=== PATIENT | female | born 1990 | race Caucasian/White ===

== ENCOUNTER 2018-03-03 00:46 | Emergency (ER) | payer SELFPAY ==
[~2018-03-03] VITALS: Ht 175.3 cm; Wt 127.0 kg
[~2018-03-03 00:46] MED LIST: ACHYD1T PO; CEPH500C PO; CYCL10TA9 PO; DCS100C PO; DOXY100C2 PO; FAMO20TA5 PO; HYDR1TAB PO; IBP800T PO; LEVO500T69 PO; METR500T PO; NAPR-243 PO; NEOM10DR6 EACH EAR; NITR-65 PO; NITR100C PO; ONDAN4ODT PO; PHEN200T27 PO; PRD20T PO; PREN1TAB39 PO; RNT150T PO
--- OUTSIDE RECORDS SUMMARY | 2018-03-03 00:54 | XMS REPORT ---
Author Author SAUL KING [facility] IN [facility] Address [address] [place] [address] Care Team Providers Care Rubber Process Hand Name Role Phone SAUL KING Unavailable PROBLEMS Type Condition ICD9-CM Code EZO60-BG Code Onset Dates Condition Status SNOMED Code Problem Other chronic pain G89.29 Active 35447294 Problem Obesity (BMI 30-39.9) E66.9 Active 252314626 Problem Elevated hemoglobin A1c measurement R73.09 Active 540847136 Problem Fibrocystic breast disease (FCBD) in female N60.19 Active 15720396 Problem Elevated fasting glucose R73.01 Active 582324815 ALLERGIES No Known Allergies ENCOUNTERS Encounter Location Date Diagnosis [facility] IN [facility] [address] [address] Apr, Cough R05 and Acute nasopharyngitis J00 [facility] [address] [id number] Feb, Bronchitis J40 and BMI 40.0-44.9, adult Z68.41 [facility] [address] [address] Nov, [facility] [address] [address] Jul, Lumbar sprain, initial encounter S33.5XXA [address] [address] Apr, Impaired fasting glucose R73.01 [place] [address] [address] Mar, Encounter for routine adult health examination with abnormal findings Z00.01 ; Obesity (BMI 30-39.9) E66.9 and Pain in right knee M25.561 [facility] [id number] [place] [address] 20 Mar, 2016 Encounter for routine adult health examination with abnormal findings Z00.01 ; Obesity (BMI 30-39.9) E66.9 ; Fibrocystic breast disease (FCBD) in female N60.19 ; Pain in right knee M25.561 ; Pain in left knee M25.562 ; Other chronic pain G89.29 ; Pain in right ankle and joints of right foot M25.571 and Pain in left ankle and joints of left foot M25.572 [place] [address] [address] 07 Feb, 2016 Fibrocystic breast changes, unspecified laterality N60.19 and Elevated blood pressure reading R03.0 [place] [address] [address] 11 Apr, 2015 Abscess of female genitalia N73.9 [place] [address] [address] 18 Feb, 2015 Vaginal discharge N89.8 ; Sebaceous cyst L72.3 ; Bartholin cyst N75.0 and Screening for malignant neoplasm of cervix Z12.4 [facility] [id number] [place] [id number] Sep, Dental examination V72.2 [place] [id number] [place] [address] 14 Jul, 2014 [place] [id number] [place] [address]- [address] Jul, [place] [address] [address] Jul, [facility] [id number] [place] [address] Jul, [facility] [id number] [place] [address]- [address] Jul, [facility] [address] [id number] [place] [address] Jul, [facility] [address] [id number] [place] [address] 37[address] Jul, [facility] [address] [id number] [place] [address] Jul, [facility] [address] [id number] [place] [address] 8854 Sep, [facility] [address] [id number] [place] [address] 8[address] Jun, [facility] [address] [id number] [place] [address] 0782 Jun, [facility] [address] [id number] [place] [address]- 5256 Jun, [facility] [address] [id number] [place] [address] May, [facility] [address] [id number] [place] [address] 8[address] May, [facility] [address] [id number] [place] [address]- 6826 Apr, [facility] [address] [id number] [place] [address] 356[address] Apr, [facility] [address] [id number] [place] [address]- 0106 Apr, [facility] [place] [facility] [address] [id number] [place] [address]- 1531 Apr, [facility] [place] [facility] [address] [id number] [place] [address]- 2844 Apr, [facility] [place] [facility] [address] [id number] [place] [address]- 1586 Mar, [facility] [address] [id number], [place] [address] Mar, [facility] [place] [facility] [address] [id number] [place] [address]- 2876 Mar, [facility] [place] [facility] [address] [id number] [place] [address]- 7516 Mar, [facility] [place] [facility] [address] [id number] [place] [address]- 0636 Mar, [facility] [place] [facility] [address] [id number] [place] [address]- 0349 Mar, [facility] [place] [facility] [address] [id number] [place] [address]- 5737 Mar, [facility] [place] [facility] [address] [id number] [place] [address]- 0082 Mar, [facility] [place] [facility] [address] [id number] [place] [address]- 6014 Mar, [facility] [place] [facility] [address] [id number] [place] [address]- 7993 Mar, [facility] [place] [facility] [address] [id number] [place] [address]- 8603 Mar, [facility] [place] [facility] [address] [id number] [place] [address]- 0769 Feb, [facility] [place] [facility] [address] [id number], [place] [address] 89[address] Feb, [facility] [place] [facility] [address] [id number], [place] [address]- 6207 Feb, [facility] [place] [facility] [address] [id number] [place] [address]- 8552 Feb, [facility] [place] [facility] [address] [id number] [place] [address]- 5156 Feb, [facility] [place] [facility] [address] [id number] [place] [address]- 1011 Feb, [facility] [place] [facility] [address] [id number] [place] [address]- 6654 Feb, [facility] [place] [facility] [address] [id number] [place] [address]- 0936 Feb, [facility] [place] [facility] [address] [id number] [place] [address]- 5126 Feb, [facility] [place] [facility] [address] [id number] [place] [address]- 9216 Jan, [facility] [place] [facility] [address] [id number] [place] [address]- 7867 Jan, [facility] [place] [facility] [address] [id number] [place] [address]- 9555 Jan, [facility] [place] [facility] [address] [id number] [place] [address]- 3729 Dec, [facility] [place] [facility] [address] [id number] [place] [address]- 2617 Dec, [facility] [place] [facility] [address] [id number] [place] [address]- 4564 Dec, [facility] [place] [facility] [address] [id number] [place] [address]- 9251 Dec, [facility] [place] [facility] [address] [id number] [place] [address]- 7780 Nov, [facility] [place] [facility] [address] [id number] [place] [address]- 2111 Nov, [facility] [place] [facility] [address] [id number] [place] [address]- 6630 Nov, [facility] [place] [facility] [address] [id number] [place] [address]- 0991 Oct, [facility] [place] [facility] [address] [id number] [place] [address]- 3226 Sep, [facility] [place] [facility] [address] [id number] [place] [address]- 2969 Sep, [facility] [place] [facility] [address] [id number] [place] [address]- 1267 26 Sep, 2011 [facility] [place] [facility] [address] [id number] [place] [address]- 5172 25 Sep, 2011 [facility] [place] [facility] [address] [id number] [place] [address]- 2013 21 Sep, 2011 [facility] [place] [facility] [address] [id number] [place] [address]- 1714 19 Sep, 2011 [facility] [place] [facility] [address] [id number] [place] [address]- 4946 15 Sep, 2011 [facility] [place] [facility] [address] [id number] [place] [address]- 7074 13 Sep, 2011 [facility] [place] [facility] [address] [id number] [place] [address]- 7930 Sep, [facility] [place] [facility] [address] [id number] [place] [address]- 9482 Sep, [facility] [place] [facility] [address] [id number] [place] [address]- 0487 August, [facility] [place] [facility] [address] [id number] [place] [address]- 6352 August, [facility] [place] [facility] [address] [id number] [place] [address]- 8943 August, [facility] [place] [facility] [address] [id number] [place] [address]- 0165 Apr, [facility] [place] [facility] [address] [id number] [place] [address]- 4562 Apr, [facility] [place] [facility] [address] [id number] [place] [address]- 3893 24 Mar, 2010 [facility] [place] [facility] [address] [id number] [place] [address]- 7652 Mar, [facility] [place] [facility] [address] [id number] [address]- 7135 Mar, [facility] [address] [id number], [place] [address]- 3365 Mar, [facility] [address] [id number], [place] [address]- 5546 Mar, [facility] [address] [id number], [place] [address]- 6290 Mar, [facility] [address], [place] [address]- 12[address] Feb, [facility] [address], [place] [address]- [address]186 Feb, [facility] [address], [place] [address]- 7527 Apr, IMMUNIZATIONS No Known Immunizations SOCIAL HISTORY Never Assessed REASON FOR VISIT CONGESTION Pt c/o body aches, cough and congestion for 3 days SIXTO Huff PLAN OF CARE Activity Details Follow Up prn Reason: VITAL SIGNS Height 70 in 2017-05-04 Weight 285.6 lbs 2017-05-04 Temperature 98.4 degrees Fahrenheit 2017-05-04 Heart Rate 88 bpm 2017-05-04 Respiratory Rate 20 2017-05-04 BMI 40.97 kg/m2 2017-05-04 Blood pressure systolic 122 mmHg 2017-05-04 Blood pressure diastolic 74 mmHg 2017-05-04 MEDICATIONS Medication Instructions Dosage Frequency Start Date End Date Duration Status Deltasone 20 mg Orally as directed 3 tab qdayx3, 2 tab qday x3 days, 1 tab qday x3 days Feb, Not-Taking Zyrtec Allergy 10 mg Orally Once a day 1 tablet 24h Feb, Not -Taking ProAir HFA 108 (90 Base) MCG/ACT Inhalation q 4 hours PRN 2 puffs as needed Feb, Not-Taking RESULTS Name Result Date Reference Range INFLUENZA A & B (IN HOUSE) 2017-05-04 INFLUENZA A negative INFLUENZA B negative Control + Lot # [id number] Exp date [id number] PROCEDURES Procedure Date Ordered Result Body Site INFLUENZA ASSAY W/OPTIC May 04, 2017 INSTRUCTIONS MEDICATIONS ADMINISTERED No Known Medications MEDICAL (GENERAL) HISTORY Type Description Date Medical History Diffuse cystic mastopathy of right breast Medical History Diffuse cystic mastopathy of right breast Medical History Major depressive disorder, recurrent, moderate Medical History Renal colic Surgical History 2012 Hospitalization History Surgery/childbirth
--- OUTSIDE RECORDS SUMMARY | 2018-03-03 00:54 | XMS REPORT ---
Author Author PURNIMA BAILEY [facility] eClinicalWorks Address Unknown Phone Unavailable Care Team Providers Care Barrel Raiser Name Role Phone PURNIMA BAILEY CP Unavailable Allergies, Adverse Reactions, Alerts Substance Reaction Event Type N.K.D.A. Info Not Available Non Drug Allergy Problems Problem Type Condition Code Onset Dates Condition Status Problem Renal colic N23 Active Assessment Vaginal discharge N89.8 Active Problem Major depressive disorder, recurrent, moderate F33.1 Active Assessment Screening for malignant neoplasm of cervix Z12.4 Active Assessment Sebaceous cyst L72.3 Active Assessment Bartholin cyst N75.0 Active Medications No Known Medications Procedures Procedure Coding System Code Date TRICHOMONAS VAGIN, DIR PROBE CPT-4 58583 Mar 17, 2015 SPECIMEN HANDLING CPT-4 28350 Mar 17, 2015 No Charge CPT-4 17026 Mar 17, 2015 Office Visit, Est Pt., Level 3 CPT-4 35966 Mar 17, 2015 Vital Signs Date/Time: Mar 17, 2015 Temperature 98.0 F Weight 279.5 lbs Height 70 in BMI 40.10 Index Blood Pressure Diastolic 84 mmHg Blood Pressure Systolic 132 mmHg Cardiac Monitoring Heart Rate 80 bpm Results Name Result Date Reference Range Unit Abnormality Flag TRICHOMONAS (IN HOUSE) Summary Purpose eClinicalWorks Submission
--- OUTSIDE RECORDS SUMMARY | 2018-03-03 00:54 | XMS REPORT ---
Author Author KEVON JAQUEZ Organization [facility] Address [address] [place] [address] Care Team Providers Care Cable Strander Name Role Phone KEVON JAQUEZ Unavailable PROBLEMS Type Condition ICD9-CM Code QYK47-MV Code Onset Dates Condition Status SNOMED Code Problem Obesity (BMI 30-39.9) E66.9 Active 789767433 Problem Fibrocystic breast disease (FCBD) in female N60.19 Active 66878728 Problem Elevated hemoglobin A1c measurement R73.09 Active 289642272 Problem Other chronic pain G89.29 Active 72019687 Problem Elevated fasting glucose R73.01 Active 409111208 ALLERGIES Unknown Allergies SOCIAL HISTORY No smoking Hx information available PLAN OF CARE VITAL SIGNS MEDICATIONS Unknown Medications RESULTS No Results PROCEDURES Procedure Date Ordered Related Diagnosis Body Site ASSAY THYROID STIM HORMONE Apr 25, 2016 GLYCATED HEMOGLOBIN TEST Apr 25, 2016 VENIPUNCT, ROUTINE* Apr 25, 2016 RHEUMATOID FACTOR, QUANT Apr 25, 2016 COMPLETE CBC W/AUTO DIFF WBC Apr 25, 2016 COMPREHEN METABOLIC PANEL Apr 25, 2016 LIPID PANEL Apr 25, 2016 IMMUNIZATIONS No Known Immunizations
--- OUTSIDE RECORDS SUMMARY | 2018-03-03 00:54 | XMS REPORT ---
Author Author JESSICA TOBIAS [facility] Address [address] [place] [address] Care Team Providers Care Program Supervisor Name Role Phone JESSICA TOBIAS Unavailable PROBLEMS Type Condition ICD9-CM Code ERV73-FW Code Onset Dates Condition Status SNOMED Code Problem Other chronic pain G89.29 Active 97401395 Problem Obesity (BMI 30-39.9) E66.9 Active 243064571 Problem Elevated hemoglobin A1c measurement R73.09 Active 201817613 Problem Fibrocystic breast disease (FCBD) in female N60.19 Active 18018835 Problem Elevated fasting glucose R73.01 Active 769632048 ALLERGIES No Known Allergies ENCOUNTERS Encounter Location Date Diagnosis [facility] [address] [address] Nov, Well woman exam Z01.419 ; Screening for cervical cancer Z12.4 ; Mastalgia N64.4 and BMI 40.0-44.9, adult Z68.41 [facility] [id number] [place] [address] Oct, 2018 BMI 40.0-44.9, adult Z68.41 and Ringworm of body B35.4 [facility] [id number] [place] [address] Apr, Cough R05 and Acute nasopharyngitis J00 [facility] [address] [id number] Feb, Bronchitis J40 and BMI 40.0-44.9, adult Z68.41 [facility] [id number] [place] [address] Nov, [facility] [address] [address] Jul, Lumbar sprain, initial encounter S33.5XXA [place] [address] [address] Apr, Impaired fasting glucose R73.01 [place] [address] [address] Mar, Encounter for routine adult health examination with abnormal findings Z00.01 ; Obesity (BMI 30-39.9) E66.9 and Pain in right knee M25.561 [place] [address] [address]- [address] 20 Mar, 2016 Encounter for routine adult [...] ankle and joints of left foot M25.572 [place] [address] [address]- [address] Feb, Fibrocystic breast changes, unspecified laterality N60.19 and Elevated blood pressure reading R03.0 [place] [address] [address]- [address] Apr, Abscess of female genitalia N73.9 [place] [address] [address]- [address] Feb, Vaginal discharge N89.8 ; Sebaceous cyst L72.3 ; Bartholin cyst N75.0 and Screening for malignant neoplasm of cervix Z12.4 [facility] [address] [id number] Sep, Dental examination V72.2 [place] [address] [address] Jul, [facility] [place] [facility] [address] [id number] [place] [address]- 4136 Jul, [facility] [place] [facility] [address] [id number] [place] [address]- 8347 Jul, [facility] [place] [facility] [address] [id number] [place] [address]- 1661 Jul, [facility] [place] [facility] [address] [id number] [place] [address]- 6010 Jul, [facility] [place] [facility] [address] [id number] [place] [address]- 6271 Jul, [facility] [place] [facility] [address] [id number] [place] [address]- 9871 Jul, [facility] [place] [facility] [address] [id number] [place] [address]- 3312 Jul, [facility] [place] [facility] [address] [id number] [place] [address]- 6530 Sep, [facility] [place] [facility] [address] [id number] [place] [address]- 3745 Jun, [facility] [place] [facility] [address] [id number] [place] [address]- 3363 Jun, [facility] [place] [facility] [address] [id number] [place] [address]- 2125 Jun, [facility] [place] [facility] [address] [id number] [place] [address]- 9464 May, [facility] [place] [facility] [address] [id number] [place] [address]- 2359 May, [facility] [place] [facility] [address] [id number] [place] [address]- 9196 Apr, [facility] [place] [facility] [address] [id number] [place] [address]- 3106 Apr, [facility] [place] [facility] [address] [id number] [place] [address]- 6573 Apr, [facility] [place] [facility] [address] [id number] [place] [address]- 0982 Apr, [facility] [place] [facility] [address] [id number] [place] [address]- 2756 Apr, [facility] [place] [facility] [address] [id number] [place] [address]- 2366 Mar, [facility] [place] [facility] [address] [id number] [place] [address]- 7166 Mar, [facility] [place] [facility] [address] [id number] [place] [address]- 9520 Mar, [facility] [place] [facility] [address] [id number] [place] [address]- 4107 Mar, [facility] [place] [facility] [address] [id number] [place] [address]- 2766 Mar, [facility] [place] [facility] [address] [id number] [place] [address]- 0511 Mar, [facility] [place] [facility] [address] [id number] [place] [address]- 8663 Mar, [facility] [place] [facility] [address] [id number] [place] [address]- 6426 Mar, [facility] [place] [facility] [address] [id number] [place] [address]- 3987 Mar, [facility] [place] [facility] [address] [id number] [place] [address]- 1920 Mar, [facility] [place] [facility] [address] [id number] [place] [address]- 7180 Mar, [facility] [place] [facility] [address] [id number] [place] [address]- 1254 Feb, [facility] [place] [facility] [address] [id number] [place] [address]- 6823 Feb, [facility] [place] [facility] [address] [id number] [place] [address]- 6749 Feb, [facility] [place] [facility] [address] [id number] [place] [address]- 6793 Feb, [facility] [place] [facility] [address] [id number] [place] [address]- 0036 Feb, [facility] [place] [facility] [address] [id number] [place] [address]- 8932 Feb, [facility] [place] [facility] [address] [id number] [place] [address]- 9587 Feb, [facility] [place] [facility] [address] [id number] [place] [address]- 0734 Feb, [facility] [place] [facility] [address] [id number] [place] [address]- 1433 Feb, [facility] [place] [facility] [address] [id number] [place] [address]- 4522 Jan, [facility] [place] [facility] [address] [id number] [place] [address]- 0357 Jan, [facility] [place] [facility] [address] [id number] [place] [address]- 4120 Jan, [facility] [place] [facility] [address] [id number] [place] [address]- 6733 Dec, [facility] [place] [facility] [address] [id number] [place] [address] 2541 Dec, [facility] [place] [facility] [address] [id number] [place] [address]- 8571 20 Dec, 2011 [facility] [place] [facility] [address] [id number] [place] [address]- 3317 19 Dec, 2011 [facility] [place] [facility] [address] [id number] [place] [address]- 2646 Nov, [facility] [place] [facility] [address] [id number] [place] [address]- 6976 Nov, [facility] [place] [facility] [address] [id number] [place] [address]- 1215 Nov, [facility] [place] [facility] [address] [id number] [place] [address]- 3997 Oct, [facility] [place] [facility] [address] [id number] [place] [address]- 0228 Sep, [facility] [place] [facility] [address] [id number] [place] [address] Sep, [facility] [place] [facility] [address] [id number] [place] [address] Sep, [facility] [place] [facility] [address] [id number] [place] [address] Sep, [facility] [place] [facility] [address] [id number] [place] [address] Sep, [facility] [place] [facility] [address] [id number] [place] [address] Sep, [facility] [place] [facility] [address] [id number] [place] [address] Sep, [facility] [place] [facility] [address] [id number] [place] [address] Sep, [facility] [place] [facility] [address] [id number] [place] [address] Sep, [facility] [place] [facility] [address] [id number] [place] [address] Sep, [facility] [place] [facility] [address] [id number] [place] [address] August, [facility] [place] [facility] [address] [id number] [place] [address] August, [facility] [place] [facility] [address] [id number] [place] [address] August, [facility] [place] [facility] [address] [id number] [place] [address] 13 Apr, 2011 [facility] [id number] [address] 17 Apr, 2010 [facility] [id number] [address] 24 Mar, 2010 [facility] [id number] [address] Mar, [facility] [id number] [address] Mar, [facility] [id number] [address] Mar, [facility] [id number] [address] Mar, [facility] [id number] [address] Mar, [facility] [id number] [address] Feb, [facility] [address] [address] Feb, [facility] [address] [address] Apr, IMMUNIZATIONS No Known Immunizations SOCIAL HISTORY Never Assessed REASON FOR VISIT Well Woman Exam--[id number] PLAN OF CARE Activity Details Follow Up 1 Year Reason: Pending Test PAP REFLEX TO HPV IF ASCUS VITAL SIGNS Height 70 in 2017-12-24 Weight 288.5 lbs 2017-12-24 Temperature 98.8 degrees Fahrenheit 2017-12-24 Heart Rate 84 bpm 2017-12-24 Respiratory Rate 20 2017-12-24 BMI 41.39 kg/m2 2017-12-24 Blood pressure systolic 122 mmHg 2017-12-24 Blood pressure diastolic 84 mmHg 2017-12-24 MEDICATIONS No Known Medications RESULTS No Results PROCEDURES Procedure Date Ordered Result Body Site SPECIMEN HANDLING Dec 24, 2017 INSTRUCTIONS MEDICATIONS ADMINISTERED No Known Medications MEDICAL (GENERAL) HISTORY Type Description Date Medical History Diffuse cystic mastopathy of right breast Medical History Diffuse cystic mastopathy of right breast Medical History Major depressive disorder, recurrent, moderate Medical History Renal colic Surgical History 2012 Hospitalization History Surgery/childbirth
--- OUTSIDE RECORDS SUMMARY | 2018-03-03 00:54 | XMS REPORT ---
Author Author GISELEKRYSTENKEVON Organization [facility] Address [address] [place] [address] Care Team Providers Care Material Loader Name Role Phone KEVON JAQUEZ Unavailable PROBLEMS Type Condition ICD9-CM Code SDE12-HI Code Onset Dates Condition Status SNOMED Code Problem Obesity (BMI 30-39.9) E66.9 Active 112136657 Problem Fibrocystic breast disease (FCBD) in female N60.19 Active 09839338 Problem Elevated hemoglobin A1c measurement R73.09 Active 175391678 Problem Other chronic pain G89.29 Active 33329382 Problem Elevated fasting glucose R73.01 Active 719932177 ALLERGIES Substance Reaction Event Type Date Status N.K.D.A. Unknown Non Drug Allergy Mar, Unknown SOCIAL HISTORY No smoking Hx information available PLAN OF CARE Activity Details Follow Up 4 Weeks Reason:follow up VITAL SIGNS Height 70 in 2016-04-18 Weight 275.7 lbs 2016-04-18 Temperature 97.8 degrees Fahrenheit 2016-04-18 Heart Rate 88 bpm 2016-04-18 Respiratory Rate 20 2016-04-18 BMI 39.55 kg/m2 2016-04-18 Blood pressure systolic 127 mmHg 2016-04-18 Blood pressure diastolic 84 mmHg 2016-04-18 MEDICATIONS Medication Instructions Dosage Frequency Start Date End Date Duration Status Ibuprofen 800 MG Orally Three times a day 1 tablet 8h Mar, Active RESULTS Name Result Date Reference Range Xray : Knee, Left 3 views (IN HOUSE) 2016-04-18 Xray : Knee, Right 3 views (IN HOUSE) 2016-04-18 Xray : Ankle, Left, 3 views (IN HOUSE) 2016-04-18 Xray : Ankle, Right 3 views (IN HOUSE) 2016-04-18 PROCEDURES Procedure Date Ordered Related Diagnosis Body Site X-RAY EXAM OF ANKLE Apr 18, 2016 X-RAY EXAM OF KNEE, 3 Apr 18, 2016 Office Visit, Est Pt., Level 4 Apr 18, 2016 IMMUNIZATIONS No Known Immunizations
--- OUTSIDE RECORDS SUMMARY | 2018-03-03 00:54 | XMS REPORT ---
Author Author KEVON JAQUEZ Organization [facility] Address [address] [place] [address] Care Team Providers Care Exterior Work Helper Name Role Phone KEVON JAQUEZ Unavailable PROBLEMS Type Condition ICD9-CM Code YWA51-DG Code Onset Dates Condition Status SNOMED Code Problem Other chronic pain G89.29 Active 50598313 Problem Obesity (BMI 30-39.9) E66.9 Active 294816115 Problem Elevated hemoglobin A1c measurement R73.09 Active 841812330 Problem Fibrocystic breast disease (FCBD) in female N60.19 Active 27194737 Problem Elevated fasting glucose R73.01 Active 190363884 ALLERGIES Unknown Allergies SOCIAL HISTORY No smoking Hx information available PLAN OF CARE VITAL SIGNS MEDICATIONS Unknown Medications RESULTS No Results PROCEDURES No Known procedures IMMUNIZATIONS No Known Immunizations
--- OUTSIDE RECORDS SUMMARY | 2018-03-03 00:54 | XMS REPORT ---
Author Author MARA WHITTINGTON [facility] eClinicalWorks Address Unknown Phone Unavailable Care Team Providers Care Visitor Services Associate Name Role Phone MARA WHITTINGTON CP Unavailable Allergies, Adverse Reactions, Alerts Substance Reaction Event Type N.K.D.A. Info Not Available Non Drug Allergy Problems Problem Type Condition Code Onset Dates Condition Status Problem Renal colic N23 Active Assessment Abscess of female genitalia N73.9 Active Problem Major depressive disorder, recurrent, moderate F33.1 Active Medications No Known Medications Procedures Procedure Coding System Code Date I & D OF VULVA/PERINEUM CPT-4 44674 May 10, 2015 Vital Signs Date/Time: May 10, 2015 Temperature 97.3 F Weight 277.3 lbs Height 70 in BMI 39.78 Index Blood Pressure Diastolic 86 mmHg Blood Pressure Systolic 132 mmHg Cardiac Monitoring Heart Rate 96 bpm Results Name Result Date Reference Range Unit Abnormality Flag I & D OF LABIAL ABSCESS Summary Purpose eClinicalWorks Submission
--- OUTSIDE RECORDS SUMMARY | 2018-03-03 00:54 | XMS REPORT ---
Author Author SAUL KING [facility] Address [address] [place] [address] Care Team Providers Care Barnworker Groom Name Role Phone SAUL KING Unavailable PROBLEMS Type Condition ICD9-CM Code WGK32-ZP Code Onset Dates Condition Status SNOMED Code Problem Other chronic pain G89.29 Active 76445169 Problem Obesity (BMI 30-39.9) E66.9 Active 973144579 Problem Elevated hemoglobin A1c measurement R73.09 Active 307175480 Problem Fibrocystic breast disease (FCBD) in female N60.19 Active 30316758 Problem Elevated fasting glucose R73.01 Active 748380872 ALLERGIES No Known Allergies ENCOUNTERS Encounter Location Date Diagnosis [facility] [id number] [place] [address] Nov, Well woman exam Z01.419 ; Screening for cervical cancer Z12.4 ; Mastalgia N64.4 and BMI 40.0-44.9, adult Z68.41 [facility] [id number] [place] [address] Oct, 2018 BMI 40.0-44.9, adult Z68.41 and Ringworm of body B35.4 [facility] [id number] [place] [address] Apr, Cough R05 and Acute nasopharyngitis J00 [facility] [address] [id number] Feb, Bronchitis J40 and BMI 40.0-44.9, adult Z68.41 [facility] [id number] [place] [address] Nov, [facility] [id number] [place] [address] Jul, Lumbar sprain, initial encounter S[address] [place] [address] [address] Apr, Impaired fasting glucose R73.01 [place] [address] [address] Mar, Encounter for routine adult health examination with abnormal findings Z00.01 ; Obesity (BMI 30-39.9) E66.9 and Pain in right knee M25.561 [place] [address] [address] 20 Mar, 2016 Encounter for routine adult [...] ankle and joints of left foot M25.572 [place] [address] [address] Feb, Fibrocystic breast changes, unspecified laterality N60.19 and Elevated blood pressure reading R03.0 [place] [address] [address] Apr, Abscess of female genitalia N73.9 [place] [address] [address] Feb, Vaginal discharge N89.8 ; Sebaceous cyst L72.3 ; Bartholin cyst N75.0 and Screening for malignant neoplasm of cervix Z12.4 [facility] [address] [id number] Sep, Dental examination V72.2 [place] [address] [address] Jul, [facility] [address] [id number] [place] [address] Jul, [facility] [address] [id number] [place] [address] Jul, [facility] [place] [facility] [address] [id number] [place] [address] Jul, [facility] [place] [facility] [address] [id number] [place] [address] Jul, [facility] [place] [facility] [address] [id number] [place] [address] Jul, [facility] [place] [facility] [address] [id number] [place] [address] Jul, [facility] [place] [facility] [address] [id number] [place] [address] Jul, [facility] [address] [id number] [place] [address] Sep, [facility] [place] [facility] [address] [id number] [place] [address] Jun, [facility] [place] [facility] [address] [id number] [place] [address] Jun, [facility] [place] [facility] [address] [id number] [place] [address] Jun, [facility] [place] [facility] [address] [id number] [place] [address] May, [facility] [place] [facility] [address] [id number] [place] [address] May, [facility] [place] [facility] [address] [id number] [place] [address] Apr, [facility] [place] [facility] [address] [id number] [place] [address] Apr, [facility] [place] [facility] [address] [id number] [place] [address] Apr, [facility] [address] [id number] [place] [address] Apr, [facility] [place] [facility] [address] [id number] [place] [address] Apr, [facility] [place] [facility] [address] [id number] [place] [address] Mar, [facility] [place] [facility] [address] [id number] [place] [address] Mar, [facility] [place] [facility] [address] [id number] [place] [address] Mar, [facility] [place] [facility] [address] [id number] [place] [address] Mar, [facility] [place] [facility] [address] [id number] [place] [address] Mar, [facility] [place] [facility] [address] [id number] [place] [address] Mar, [facility] [place] [facility] [address] [id number] [place] [address] Mar, [facility] [place] [facility] [address] [id number] [place] [address] Mar, [facility] [place] [facility] [address] [id number] [place] [address]- [address] Mar, [facility] [place] [facility] [address] [id number] [place] [address]- [address] Mar, [facility] [place] [facility] [address] [id number] [place] [address] Mar, [facility] [place] [facility] [address] [id number] [place] [address] Feb, [facility] [place] [facility] [address] [id number] [place] [address]- [address] Feb, [facility] [place] [facility] [address] [id number] [place] [address]- [address] Feb, [facility] [place] [facility] [address] [id number] [place] [address]- [address] Feb, [facility] [place] [facility] [address] [id number] [place] [address]- [address] Feb, [facility] [place] [facility] [address] [id number] [place] [address]- [address] Feb, [facility] [place] [facility] [address] [id number] [place] [address]- [address] Feb, [facility] [place] [facility] [address] [id number] [place] [address]- [address] Feb, [facility] [place] [facility] [address] [id number] [place] [address]- [address] Feb, [facility] [place] [facility] [address] [id number] [place] [address]- [address] Jan, [facility] [place] [facility] [address] [id number] [place] [address]- [address] Jan, [facility] [place] [facility] [address] [id number] [place] [address]- [address] Jan, [facility] [place] [facility] [address] [id number] [place] [address]- [address] Dec, [facility] [place] [facility] [address] [id number] [place] [address]- [address] Dec, [facility] [place] [facility] [address] [id number] [place] [address]- [address] 20 Dec, 2011 [facility] [place] [facility] [address] [id number] [place] [address]- [address] 19 Dec, 2011 [facility] [place] [facility] [address] [id number] [place] [address]- [address] Nov, [facility] [place] [facility] [address] [id number] [place] [address]- [address] Nov, [facility] [place] [facility] [address] [id number] [place] [address]- 7666 Nov, [facility] [place] [facility] [address] [id number] [place] [address]- [address] Oct, [facility] [place] [facility] [address] [id number] [place] [address]- [address] Sep, [facility] [place] [facility] [address] [id number] [place] [address]- 96[address] Sep, [facility] [place] [facility] [address] [id number] [place] [address]- 8961 Sep, [facility] [place] [facility] [address] [id number] [place] [address]- [address] Sep, [facility] [place] [facility] [address] [id number] [place] [address]- [address] Sep, [facility] [place] [facility] [address] [id number] [place] [address]- 67[address] Sep, [facility] [place] [facility] [address] [id number] [place] [address]- [address] 15 Sep, 2011 [facility] [place] [facility] [address] [id number] [place] [address]- 1588 Sep, [facility] [place] [facility] [address] [id number] [place] [address]- [address] Sep, [facility] [place] [facility] [address] [id number] [place] [address]- 4099 Sep, [facility] [place] [facility] [address] [id number] [place] [address]- [address] August, [facility] [place] [facility] [address] [id number] [place] [address]- [address] August, [facility] [place] [facility] [address] [id number] [place] [address]- [address] August, [facility] [place] [facility] [address] [id number], [place] [address] 13 Apr, 2011 [facility] [address] [place] [address] 17 Apr, 2010 [facility] [id number] [place] [address] Mar, [facility] [id number] [place] [address] Mar, [facility] [id number] [place] [address] Mar, [facility] [id number] [place] [address]- [address] Mar, [facility] [id number] [place] [address] Mar, [facility] [id number] [place] [address] Mar, [facility] [id number] [place] [address] Feb, [facility] [address] [place] [address] Feb, [facility] [address] [place] [address] Apr, IMMUNIZATIONS No Known Immunizations SOCIAL HISTORY Never Assessed REASON FOR VISIT Rash-The patient has a place on her left breast, left bikini area and rt side/ lower back that she has had for about two weeks. The patient's mother thinks it is ringworm._ _SIXTO Ram PLAN OF CARE Activity Details Follow Up prn Reason: VITAL SIGNS Height 70 in 2017-11-12 Weight 297.6 lbs 2017-11-12 Temperature 98.2 degrees Fahrenheit 2017-11-12 Heart Rate 84 bpm 2017-11-12 Respiratory Rate 20 2017-11-12 BMI 42.70 kg/m2 2017-11-12 Blood pressure systolic 114 mmHg 2017-11-12 Blood pressure diastolic 74 mmHg 2017-11-12 MEDICATIONS Medication Instructions Dosage Frequency Start Date End Date Duration Status Ketoconazole 2 % Externally Twice a day 1 application to affected area 12h 6 Nov, 2017 21 days Active Zyrtec Allergy 10 mg Orally Once a day 1 tablet 24h 10 Feb, 2017 Active RESULTS No Results PROCEDURES No Known procedures INSTRUCTIONS MEDICATIONS ADMINISTERED No Known Medications MEDICAL (GENERAL) HISTORY Type Description Date Medical History Diffuse cystic mastopathy of right breast Medical History Diffuse cystic mastopathy of right breast Medical History Major depressive disorder, recurrent, moderate Medical History Renal colic Surgical History 2012 Hospitalization History Surgery/childbirth
--- OUTSIDE RECORDS SUMMARY | 2018-03-03 00:55 | XMS REPORT | Continuity of Care Document ---
Author Author [facility] [place] Address Unknown Phone Unavailable Allergies Active Description Code Type Severity Reaction Onset Reported/Identified Relationship to Patient Clinical Status Yes No Known Drug Allergies [id number] Drug Allergy Mild N/A 03/15/2009 Medications There is no data. Problems Date Dx Coded Attending Type Code Diagnosis Diagnosed By 05/15/2008 MARA WHITTINGTON DO 296.89 MO BIPOLAR II 05/15/2008 296.89 MO BIPOLAR II 05/15/2008 296.89 MO BIPOLAR II 05/15/2008 296.89 MO BIPOLAR II 05/15/2008 296.89 MO BIPOLAR II 05/15/2008 MARA WHITTINGTON DO 296.89 MO BIPOLAR II 05/15/2008 296.89 MO BIPOLAR II 05/15/2008 296.89 MO BIPOLAR II 05/15/2008 296.89 MO BIPOLAR II 05/15/2008 296.89 MO BIPOLAR II 05/15/2008 MARA WHITTINGTON DO 296.89 MO BIPOLAR II 05/15/2008 LUCERO SÁNCHEZ MD 296.89 MO BIPOLAR II 05/15/2008 MASSIMO PATTON APRN 296.89 MO BIPOLAR II 05/19/2008 MARA WHITTINGTON DO 296.90 EPISODIC MOOD DISORDERS 05/19/2008 MARA WHITTINGTON DO V58.69 Taking High-risk Medication 05/19/2008 296.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 MOOD DISORDERS 05/19/2008 V58.69 Taking High- risk Medication 05/19/2008 296.90 EPISODIC MOOD DISORDERS 05/19/2008 V58.69 Taking High- risk Medication 05/19/2008 296.90 EPISODIC MOOD DISORDERS 05/19/2008 V58.69 Taking High- risk Medication 05/19/2008 296.90 EPISODIC MOOD DISORDERS 05/19/2008 V58.69 Taking High- risk Medication 05/19/2008 MARA WHITTINGTON DO 296.90 EPISODIC MOOD DISORDERS 05/19/2008 MARA WHITTINGTON DO V58.69 Taking High-risk Medication 05/19/2008 296.90 EPISODIC MOOD DISORDERS 05/19/2008 V58.69 Taking High- risk Medication 05/19/2008 296.90 EPISODIC MOOD DISORDERS 05/19/2008 V58.69 Taking High- risk Medication 05/19/2008 296.90 EPISODIC MOOD DISORDERS 05/19/2008 V58.69 Taking High- risk Medication 05/19/2008 296.90 EPISODIC MOOD DISORDERS 05/19/2008 V58.69 Taking High- risk Medication 05/19/2008 MARA WHITTINGTON DO 296.90 EPISODIC MOOD DISORDERS 05/19/2008 MARA WHITTINGTON DO V58.69 Taking High-risk Medication 05/19/2008 LUCERO SÁNCHEZ MD 296.90 EPISODIC MOOD DISORDERS 05/19/2008 LUCERO SÁNCHEZ MD V58.69 Taking High-risk Medication 05/19/2008 MASSIMO PATTON APRN S 296.90 EPISODIC MOOD DISORDERS 05/19/2008 MASSIMO PATTON APRN S V58.69 Taking High-risk Medication 05/29/2008 MARA WHITTINGTON DO 251.1 HYPERINSULINISM 05/29/2008 251.1 HYPERINSULINISM 05/29/2008 251.1 HYPERINSULINISM 05/29/2008 251.1 HYPERINSULINISM 05/29/2008 251.1 HYPERINSULINISM 05/29/2008 AMRA WHITTINGTON DO 251.1 HYPERINSULINISM 05/29/2008 251.1 HYPERINSULINISM 05/29/2008 251.1 HYPERINSULINISM 05/29/2008 251.1 HYPERINSULINISM 05/29/2008 251.1 HYPERINSULINISM 05/29/2008 MARA WHITTINGTON DO 251.1 HYPERINSULINISM 05/29/2008 LUCERO SÁNCHEZ MD 251.1 HYPERINSULINISM 05/29/2008 MASSIMO PATTON APRN S 251.1 HYPERINSULINISM 07/01/2008 MARA WHITTINGTON DO 780.52 Insomnia 07/01/2008 780.52 Insomnia 07/01/2008 780.52 Insomnia 07/01/2008 780.52 Insomnia 07/01/2008 780.52 Insomnia 07/01/2008 MARA WHITTINGTON DO 780.52 Insomnia 07/01/2008 780.52 Insomnia 07/01/2008 780.52 Insomnia 07/01/2008 780.52 Insomnia 07/01/2008 780.52 Insomnia 07/01/2008 MARA WHITTINGTON DO 780.52 Insomnia 07/01/2008 LUCERO SÁNCHEZ MD 780.52 Insomnia 07/01/2008 MASSIMO PATTON APRN 780.52 Insomnia 01/08/2010 MARA WHITTINGTON DO 599.0 Urinary Tract Infection 01/08/2010 599.0 Urinary Tract Infection 01/08/2010 599.0 Urinary Tract Infection 01/08/2010 599.0 Urinary Tract Infection 01/08/2010 599.0 Urinary Tract Infection 01/08/2010 MARA WHITTINGTON DO 599.0 Urinary Tract Infection 01/08/2010 599.0 Urinary Tract Infection 01/08/2010 599.0 Urinary Tract Infection 01/08/2010 599.0 Urinary Tract Infection 01/08/2010 599.0 Urinary Tract Infection 01/08/2010 MARA WHITTINGTON DO 599.0 Urinary Tract Infection 01/08/2010 LUCERO SÁNCHEZ MD 599.0 Urinary Tract Infection 01/08/2010 MASSIMO PATTON APRN 599.0 Urinary Tract Infection 03/22/2010 MARA WHITTINGTON DO 626.4 Irregular Menstrual Cycle 03/22/2010 MARA WHITTINGTON DO V25.01 General Counseling On Prescription Of Oral Contraceptives 03/22/2010 626.4 Irregular Menstrual Cycle 03/22/2010 V25.01 General Counseling On Prescription Of Oral Contraceptives 03/22/2010 626.4 Irregular Menstrual Cycle 03/22/2010 V25.01 General Counseling On Prescription Of Oral Contraceptives 03/22/2010 626.4 Irregular Menstrual Cycle 03/22/2010 V25.01 General Counseling On Prescription Of Oral Contraceptives 03/22/2010 626.4 Irregular Menstrual Cycle 03/22/2010 V25.01 General Counseling On Prescription Of Oral Contraceptives 03/22/2010 MARA WHITTINGTON DO 626.4 Irregular Menstrual Cycle 03/22/2010 MARA WHITTINGTON DO V25.01 General Counseling On Prescription Of Oral Contraceptives 03/22/2010 626.4 Irregular Menstrual Cycle 03/22/2010 V25.01 General Counseling On Prescription Of Oral Contraceptives 03/22/2010 626.4 Irregular Menstrual Cycle 03/22/2010 V25.01 General Counseling On Prescription Of Oral Contraceptives 03/22/2010 626.4 Irregular Menstrual Cycle 03/22/2010 V25.01 General Counseling On Prescription Of Oral Contraceptives 03/22/2010 626.4 Irregular Menstrual Cycle 03/22/2010 V25.01 General Counseling On Prescription Of Oral Contraceptives 03/22/2010 MARA WHITTINGTON DO 626.4 Irregular Menstrual Cycle 03/22/2010 MARA WHITTINGTON DO V25.01 General Counseling On Prescription Of Oral Contraceptives 03/22/2010 LUCERO SÁNCHEZ MD 626.4 Irregular Menstrual Cycle 03/22/2010 LUCERO SÁNCHEZ MD V25.01 General Counseling On Prescription Of Oral Contraceptives 03/22/2010 MASSIMO PATTON APRN 626.4 Irregular Menstrual Cycle 03/22/2010 MASSIMO PATTON APRN V25.01 General Counseling On Prescription Of Oral Contraceptives 04/12/2010 MARA WHITTINGTON DO V72.31 Ends Breakage Clerk Exam, Routine 04/12/2010 V72.31 Ends Breakage Clerk Exam, Routine 04/12/2010 V72.31 Ends Breakage Clerk Exam, Routine 04/12/2010 V72.31 Ends Breakage Clerk Exam, Routine 04/12/2010 V72.31 Ends Breakage Clerk Exam, Routine 04/12/2010 MARA WHITTINGTON DO V72.31 Ends Breakage Clerk Exam, Routine 04/12/2010 V72.31 Ends Breakage Clerk Exam, Routine 04/12/2010 V72.31 Ends Breakage Clerk Exam, Routine 04/12/2010 V72.31 Ends Breakage Clerk Exam, Routine 04/12/2010 V72.31 Ends Breakage Clerk Exam, Routine 04/12/2010 MARA WHITTINGTON DO V72.31 Ends Breakage Clerk Exam, Routine 04/12/2010 LUCERO SÁNCHEZ MD V72.31 Ends Breakage Clerk Exam, Routine 04/12/2010 MASSIMO PATTON APRN V72.31 Ends Breakage Clerk Exam, Routine 05/16/2010 MARA WHITTINGTON DO 278.02 OVERWEIGHT 05/16/2010 MARA WHITTINGTON DO 788.41 Urinary Frequency 05/16/2010 MARA WHITTINGTON DO 788.63 Urinary Urgency 05/16/2010 278.02 OVERWEIGHT 05/16/2010 788.41 Urinary Frequency 05/16/2010 788.63 Urinary Urgency 05/16/2010 278.02 OVERWEIGHT 05/16/2010 788.41 Urinary Frequency 05/16/2010 788.63 Urinary Urgency 05/16/2010 278.02 OVERWEIGHT 05/16/2010 788.41 Urinary Frequency 05/16/2010 788.63 Urinary Urgency 05/16/2010 278.02 OVERWEIGHT 05/16/2010 788.41 Urinary Frequency 05/16/2010 788.63 Urinary Urgency 05/16/2010 MARA WHITTINGTON DO K 278.02 OVERWEIGHT 05/16/2010 MARA WHITTINGTON DO K 788.41 Urinary Frequency 05/16/2010 WHITTINGTON MARA ESCOBEDO K 788.63 Urinary Urgency 05/16/2010 278.02 OVERWEIGHT 05/16/2010 788.41 Urinary Frequency 05/16/2010 788.63 Urinary Urgency 05/16/2010 278.02 OVERWEIGHT 05/16/2010 788.41 Urinary Frequency 05/16/2010 788.63 Urinary Urgency 05/16/2010 278.02 OVERWEIGHT 05/16/2010 788.41 Urinary Frequency 05/16/2010 788.63 Urinary Urgency 05/16/2010 278.02 OVERWEIGHT 05/16/2010 788.41 Urinary Frequency 05/16/2010 788.63 Urinary Urgency 05/16/2010 MARA WHITTINGTON DO K 278.02 OVERWEIGHT 05/16/2010 MARA WHITTINGTON DO K 788.41 Urinary Frequency 05/16/2010 WHITTINGTON MARA ESCOBEDO K 788.63 Urinary Urgency 05/16/2010 LUCERO SÁNCHEZ MD 278.02 OVERWEIGHT 05/16/2010 LUCERO SÁNCHEZ MD 788.41 Urinary Frequency 05/16/2010 LUCERO SÁNCHEZ MD 788.63 Urinary Urgency 05/16/2010 MASSIMO PATTON APRN 278.02 OVERWEIGHT 05/16/2010 MASSIMO PATTON APRN S 788.41 Urinary Frequency 05/16/2010 MASSIMO PATTON APRN 788.63 Urinary Urgency 09/23/2011 MARA WHITTINGTON DO K 462 Acute Pharyngitis 09/23/2011 MARA WHITTINGTON DO V72.42 Examination Or Test Positive Result 09/23/2011 462 Acute Pharyngitis 09/23/2011 V72.42 Examination Or Test Positive Result 09/23/2011 462 Acute Pharyngitis 09/23/2011 V72.42 Examination Or Test Positive Result 09/23/2011 462 Acute Pharyngitis 09/23/2011 V72.42 Examination Or Test Positive Result 09/23/2011 462 Acute Pharyngitis 09/23/2011 V72.42 Examination Or Test Positive Result 09/23/2011 MARA WHITTINGTON DO 462 Acute Pharyngitis 09/23/2011 MARA WHITTINGTON DO V72.42 Examination Or Test Positive Result 09/23/2011 462 Acute Pharyngitis 09/23/2011 V72.42 Examination Or Test Positive Result 09/23/2011 462 Acute Pharyngitis 09/23/2011 V72.42 Examination Or Test Positive Result 09/23/2011 462 Acute Pharyngitis 09/23/2011 V72.42 Examination Or Test Positive Result 09/23/2011 462 Acute Pharyngitis 09/23/2011 V72.42 Examination Or Test Positive Result 09/23/2011 MARA WHITTINGTON DO 462 Acute Pharyngitis 09/23/2011 MARA WHITTINGTON DO V72.42 Examination Or Test Positive Result 09/23/2011 LUCERO SÁNCHEZ MD 462 Acute Pharyngitis 09/23/2011 LUCERO SÁNCHEZ MD V72.42 Examination Or Test Positive Result 09/23/2011 MASSIMO PATTON APRN 462 Acute Pharyngitis 09/23/2011 MASSIMO PATTON APRN V72.42 Examination Or Test Positive Result 09/28/2011 MARA WHITTINGTON DO 640.00 Threatened 09/28/2011 640.00 Threatened 09/28/2011 640.00 Threatened 09/28/2011 640.00 Threatened 09/28/2011 640.00 Threatened 09/28/2011 MARA WHITTINGTON DO 640.00 Threatened 09/28/2011 640.00 Threatened 09/28/2011 640.00 Threatened 09/28/2011 640.00 Threatened 09/28/2011 640.00 Threatened 09/28/2011 MARA WHITTINGTON DO 640.00 Threatened 09/28/2011 LUCERO SÁNCHEZ MD 640.00 Threatened 09/28/2011 MASSIMO PATTON APRN 640.00 Threatened 10/09/2011 MARA WHITTINGTON DO V22.0 , NORMAL FIRST 10/09/2011 V22.0 , NORMAL FIRST 10/09/2011 V22.0 , NORMAL FIRST 10/09/2011 V22.0 , NORMAL FIRST 10/09/2011 V22.0 , NORMAL FIRST 10/09/2011 MARA WHITTINGTON DO V22.0 , NORMAL FIRST 10/09/2011 V22.0 , NORMAL FIRST 10/09/2011 V22.0 , NORMAL FIRST 10/09/2011 V22.0 , NORMAL FIRST 10/09/2011 V22.0 , NORMAL FIRST 10/09/2011 MARA WHITTINGTON DO V22.0 , NORMAL FIRST 10/09/2011 LUCERO SÁNCHEZ MD V22.0 , NORMAL FIRST 10/09/2011 MASSIMO PATTON APRN V22.0 , NORMAL FIRST 10/23/2011 MARA WHITTINGTON DO 656.13 RH NEGATIVE 10/23/2011 MARA WHITTINGTON DO V76.2 Cervical Cancer Screening (pap Smear) 10/23/2011 656.13 RH NEGATIVE 10/23/2011 V76.2 Cervical Cancer Screening (pap Smear) 10/23/2011 656.13 RH NEGATIVE 10/23/2011 V76.2 Cervical Cancer Screening (pap Smear) 10/23/2011 656.13 RH NEGATIVE 10/23/2011 V76.2 Cervical Cancer Screening (pap Smear) 10/23/2011 656.13 RH NEGATIVE 10/23/2011 V76.2 Cervical Cancer Screening (pap Smear) 10/23/2011 MARA WHITTINGTON DO 656.13 RH NEGATIVE 10/23/2011 MARA WHITTINGTON DO V76.2 Cervical Cancer Screening (pap Smear) 10/23/2011 656.13 RH NEGATIVE 10/23/2011 V76.2 Cervical Cancer Screening (pap Smear) 10/23/2011 656.13 RH NEGATIVE 10/23/2011 V76.2 Cervical Cancer Screening (pap Smear) 10/23/2011 656.13 RH NEGATIVE 10/23/2011 V76.2 Cervical Cancer Screening (pap Smear) 10/23/2011 656.13 RH NEGATIVE 10/23/2011 V76.2 Cervical Cancer Screening (pap Smear) 10/23/2011 MARA WHITTINGTON DO 656.13 RH NEGATIVE 10/23/2011 MARA WHITTINGTON DO V76.2 Cervical Cancer Screening (pap Smear) 10/23/2011 LUCERO SÁNCHEZ MD 656.13 RH NEGATIVE 10/23/2011 LUCERO SÁNCHEZ MD V76.2 Cervical Cancer Screening (pap Smear) 10/23/2011 MASSIMO PATTON APRN 656.13 RH NEGATIVE 10/23/2011 MASSIMO PATTON APRN V76.2 Cervical Cancer Screening (pap Smear) 01/17/2012 MARA WHITTINGTON DO 599.0 Urinary Tract Infection 01/17/2012 599.0 Urinary Tract Infection 01/17/2012 599.0 Urinary Tract Infection 01/17/2012 599.0 Urinary Tract Infection 01/17/2012 599.0 Urinary Tract Infection 01/17/2012 MARA WHITTINGTON DO K 599.0 Urinary Tract Infection 01/17/2012 599.0 Urinary Tract Infection 01/17/2012 599.0 Urinary Tract Infection 01/17/2012 599.0 Urinary Tract Infection 01/17/2012 599.0 Urinary Tract Infection 01/17/2012 MARA WHITTINGTON DO 599.0 Urinary Tract Infection 01/17/2012 LUCERO SÁNCHEZ MD 599.0 Urinary Tract Infection 01/17/2012 MASSIMO PATTON APRN 599.0 Urinary Tract Infection 01/25/2012 MARA WHITTINGTON DO 788.0 Kidney Pain 01/25/2012 788.0 Kidney Pain 01/25/2012 788.0 Kidney Pain 01/25/2012 788.0 Kidney Pain 01/25/2012 788.0 Kidney Pain 01/25/2012 MARA WHITTINGTON DO 788.0 Kidney Pain 01/25/2012 788.0 Kidney Pain 01/25/2012 788.0 Kidney Pain 01/25/2012 788.0 Kidney Pain 01/25/2012 788.0 Kidney Pain 01/25/2012 MARA WHITTINGTON DO 788.0 Kidney Pain 01/25/2012 LUCERO SÁNCHEZ MD 788.0 Kidney Pain 01/25/2012 MASSIMO PATTON APRN 788.0 Kidney Pain 01/31/2012 MARA WHITTINGTON DO V04.81 FLU SHOT 01/31/2012 V04.81 FLU SHOT 01/31/2012 V04.81 FLU SHOT 01/31/2012 V04.81 FLU SHOT 01/31/2012 V04.81 FLU SHOT 01/31/2012 MARA WHITTINGTON DO V04.81 FLU SHOT 01/31/2012 V04.81 FLU SHOT 01/31/2012 V04.81 FLU SHOT 01/31/2012 V04.81 FLU SHOT 01/31/2012 V04.81 FLU SHOT 01/31/2012 MARA WHITTINGTON DO V04.81 FLU SHOT 01/31/2012 LUCERO SÁNCHEZ MD V04.81 FLU SHOT 01/31/2012 MASSIMO PATTON APRN V04.81 FLU SHOT 03/04/2012 MARA WHITTINGTON DO V77.1 Diabetes Screening 03/04/2012 MARA WHITTINGTON DO V78.0 Anemia Screening 03/04/2012 V77.1 Diabetes Screening 03/04/2012 V78.0 Anemia Screening 03/04/2012 V77.1 Diabetes Screening 03/04/2012 V78.0 Anemia Screening 03/04/2012 V77.1 Diabetes Screening 03/04/2012 V78.0 Anemia Screening 03/04/2012 V77.1 Diabetes Screening 03/04/2012 V78.0 Anemia Screening 03/04/2012 MARA WHITTINGTON DO K V77.1 Diabetes Screening 03/04/2012 MARA WHITTINGTON DO V78.0 Anemia Screening 03/04/2012 V77.1 Diabetes Screening 03/04/2012 V78.0 Anemia Screening 03/04/2012 V77.1 Diabetes Screening 03/04/2012 V78.0 Anemia Screening 03/04/2012 V77.1 Diabetes Screening 03/04/2012 V78.0 Anemia Screening 03/04/2012 V77.1 Diabetes Screening 03/04/2012 V78.0 Anemia Screening 03/04/2012 MARA WHITTINGTON DO K V77.1 Diabetes Screening 03/04/2012 MARA WHITTINGTON DO K V78.0 Anemia Screening 03/04/2012 LUCERO SÁNCHEZ MD V77.1 Diabetes Screening 03/04/2012 LUCERO SÁNCHEZ MD V78.0 Anemia Screening 03/04/2012 MASSIMO PATTON APRN V77.1 Diabetes Screening 03/04/2012 MASSIMO PATTON APRN V78.0 Anemia Screening 04/04/2012 616.10 VAGINITIS AND VULVOVAGINITIS UNSPECIFIED 04/04/2012 616.10 VAGINITIS AND VULVOVAGINITIS UNSPECIFIED 04/04/2012 616.10 Vaginitis And Vulvovaginitis Unspecified 04/04/2012 616.10 Vaginitis And Vulvovaginitis Unspecified 04/04/2012 MARA WHITTINGTON DO 616.10 Vaginitis And Vulvovaginitis Unspecified 04/04/2012 616.10 Vaginitis And Vulvovaginitis Unspecified 04/04/2012 616.10 Vaginitis And Vulvovaginitis Unspecified 04/04/2012 616.10 Vaginitis And Vulvovaginitis Unspecified 04/04/2012 616.10 Vaginitis And Vulvovaginitis Unspecified 04/04/2012 MARA WHITTINGTON DO 616.10 Vaginitis And Vulvovaginitis Unspecified 04/04/2012 LUCERO SÁNCHEZ MD 616.10 Vaginitis And Vulvovaginitis Unspecified 04/04/2012 MASSIMO PATTON APRN 616.10 Vaginitis And Vulvovaginitis Unspecified 05/02/2012 MARA WHITTINGTON DO 787.01 NAUSEA WITH VOMITING 05/02/2012 787.01 Nausea With Vomiting 05/02/2012 787.01 Nausea With Vomiting 05/02/2012 787.01 Nausea With Vomiting 05/02/2012 787.01 Nausea With Vomiting 05/02/2012 MARA WHITTINGTON DO 787.01 Nausea With Vomiting 05/02/2012 LUCERO SÁNCHEZ MD 787.01 Nausea With Vomiting 05/02/2012 MASSIMO PATTON APRN 787.01 Nausea With Vomiting 05/29/2012 648.40 DEPRESSION 05/29/2012 648.40 DEPRESSION 05/29/2012 648.40 DEPRESSION 05/29/2012 MARA WHITTINGTON DO 648.40 DEPRESSION 05/29/2012 LUCERO SÁNCHEZ MD 648.40 DEPRESSION 05/29/2012 MASSIMO PATTON APRN 648.40 DEPRESSION 06/07/2012 296.32 MO DEPRESSIVE RECURRENT MODERATE 06/07/2012 296.32 MO DEPRESSIVE RECURRENT MODERATE 06/07/2012 MARA WHITTINGTON DO 296.32 MO DEPRESSIVE RECURRENT MODERATE 06/07/2012 LUCERO SÁNCHEZ MD 296.32 MO DEPRESSIVE RECURRENT MODERATE 06/07/2012 MASSIMO PATTON APRN S 296.32 MO DEPRESSIVE RECURRENT MODERATE 06/28/2012 MARA WHITTINGTON DO V24.2 F/U, ROUTINE 06/28/2012 MARA WHITTINGTON DO V25.09 CONTRACEPTIVE COUNSELING - GENERAL 06/28/2012 LUCERO SÁNCHEZ MD V24.2 F/U, ROUTINE 06/28/2012 LUCERO SÁNCHEZ MD V25.09 CONTRACEPTIVE COUNSELING - GENERAL 06/28/2012 MASSIMO PATTON APRN S V24.2 F/U, ROUTINE 06/28/2012 MASSIMO PATTON APRN S V25.09 CONTRACEPTIVE COUNSELING - GENERAL 08/05/2013 LUCERO SÁNCHEZ MD 133.0 SCABIES 08/05/2013 LUCERO SÁNCHEZ MD 626.0 AMENORRHEA 08/05/2013 MASSIMO PATTON APRN 133.0 SCABIES 08/05/2013 MASSIMO PATTON APRN S 626.0 AMENORRHEA 08/25/2013 JAMES SHELDON APRN Ot 708.0 08/25/2013 JAMES SHELDON APRN Ot 782.1 Procedures Code [place] [address] ANTIBODY SCREEN (order) 01/30/2012 67971 ROUTINE VENIPUNCTURE 03/04/2012 J2790 RHOGHAM 300 MCG 03/04/2012 05934 GLUCOSE TUCKER 3 HOUR 03/04/2012 58401 UA OB DIP 03/04/2012 86147 GLUCOSE TUCKER 1 HOUR 03/04/2012 50668 CBC 03/04/2012 5634913 ANTIBODY SCREEN (RESULT ONLY) 03/05/2012 19649 UA OB DIP 03/20/2012 69373 UA OB DIP 04/04/2012 50897 CULTURE UROGENITAL 04/05/2012 98961 CULTURE GROUP B STREP VAG 04/17/2012 26157 UA OB DIP 04/17/2012 78815 UA OB DIP 05/02/2012 46208 UA OB DIP 05/08/2012 15029 PSYCH DIAGNOSTIC EVALUATION 06/12/2012 96368 TEST, URINE (IN- HOUSE) 08/05/2013 Results Test Result Range CBC With Differential/Platelet - 04/25/16 08:15 WBC 10.1 x10E3/uL 3.4-10.8 RBC 4.54 x10E6/uL 3.77-5.28 Hemoglobin 13.6 g/dL 11.1-15.9 Hematocrit 41.0 % 34.0-46.6 MCV 90 fL 79-97 MCH 30.0 pg 26.6-33.0 MCHC 33.2 g/dL 31.5-35.7 RDW 14.0 % 12.3-15.4 Platelets 314 x10E3/uL 150-379 Neutrophils 65 % Lymphs 26 % Monocytes 6 % Eos 3 % Basos 0 % Neutrophils (Absolute) 6.6 x10E3/uL 1.4-7.0 Lymphs (Absolute) 2.6 x10E3/uL 0.7-3.1 Monocytes(Absolute) 0.6 x10E3/uL 0.1-0.9 Eos (Absolute) 0.3 x10E3/uL 0.0-0.4 Baso (Absolute) 0.0 x10E3/uL 0.0-0.2 Immature Granulocytes 0 % Immature Grans (Abs) 0.0 x10E3/uL 0.0-0.1 Comp. Metabolic Panel (14) - 04/25/16 08:15 Glucose, Serum 100 mg/dL 65-99 BUN 6 mg/dL 6-20 Creatinine, Serum 0.84 mg/dL 0.57-1.00 eGFR If NonAfricn Am 96 mL/min/1.73 >59 eGFR If Africn Am 111 mL/min/1.73 >59 BUN/Creatinine Ratio 7 8-20 Sodium, Serum 140 mmol/L 134-144 Potassium, Serum 4.3 mmol/L 3.5-5.2 Chloride, Serum 101 mmol/L 96-106 Carbon Dioxide, Total 23 mmol/L 18-29 Calcium, Serum 8.9 mg/dL 8.7-10.2 Protein, Total, Serum 7.0 g/dL 6.0-8.5 Albumin, Serum 4.3 g/dL 3.5-5.5 Globulin, Total 2.7 g/dL 1.5-4.5 A/G Ratio 1.6 1.1-2.5 Bilirubin, Total 0.2 mg/dL 0.0-1.2 Alkaline Phosphatase, S 106 IU/L 39-117 AST (SGOT) 13 IU/L 0-40 ALT (SGPT) 14 IU/L 0-32 Lipid Panel - 04/25/16 08:15 Cholesterol, Total 145 mg/dL 100-199 Triglycerides 78 mg/dL 0-149 HDL Cholesterol 36 mg/dL >39 VLDL Cholesterol Selvin 16 mg/dL 5-40 LDL Cholesterol Calc 93 mg/dL 0-99 Hemoglobin A1c - 04/25/16 08:15 Hemoglobin A1c 5.7 % 4.8-5.6 Rheumatoid Arthritis Factor - 04/25/16 08:15 RA Latex Turbid. <10.0 IU/mL 0.0-13.9 Thyroid Schoolcraft Profile - 04/25/16 08:15 TSH 0.840 uIU/mL 0.450-4.500 SUREPATH PAP RFX HPV mRNA E6/E7 - 12/24/17 08:28 CLINICAL INFORMATION: NRG LMP: [id number] NRG PREV. PAP: 2015 WNL NRG PREV. BX: NRG SOURCE: Cervix NRG STATEMENT OF ADEQUACY: NRG INTERPRETATION/RESULT: NRG TITLE DEPARTMENT MANAGER: NRG COMMENT NRG Encounters ACCT No. Visit Date/Time Discharge Status Pt. Type Provider Facility Loc./Unit Complaint [id number] 08/05/2013 18:33:00 08/05/2013 23:59:59 CLS Outpatient LUCERO SÁNCHEZ MD [id number] 08/05/2013 18:33:00 08/05/2013 23:59:59 CLS Outpatient MASSIMO PATTON APRN [id number] 06/28/2012 15:00:00 06/28/2012 23:59:59 CLS Outpatient MARA WHITTINGTON DO [id number] 06/07/2012 09:56:00 06/07/2012 23:59:59 CLS Outpatient [id number] 05/29/2012 11:38:00 05/29/2012 23:59:59 CLS Outpatient [id number] 05/08/2012 13:49:00 05/08/2012 23:59:59 CLS Outpatient [id number] 05/08/2012 13:49:00 05/08/2012 23:59:59 CLS Outpatient [id number] 05/02/2012 10:19:00 05/02/2012 23:59:59 CLS Outpatient MARA WHITTINGTON DO [id number] 04/24/2012 13:55:00 04/24/2012 23:59:59 CLS Outpatient [id number] 04/17/2012 14:25:00 04/17/2012 23:59:59 CLS Outpatient [id number] 04/04/2012 09:44:00 04/04/2012 23:59:59 CLS Outpatient [id number] 03/04/2012 10:10:00 03/04/2012 23:59:59 CLS Outpatient MARA WHITTINGTON DO [id number] 03/04/2012 10:10:00 03/04/2012 23:59:59 CLS Outpatient [id number] 11/12/2017 08:55:00 11/12/2017 23:59:59 CLS Outpatient MARA WHITTINGTON DO [facility] [id number] 12/24/2017 08:00:00 Document Registration [id number] 10/06/2013 20:20:00 10/06/2013 22:18:00 DIS Emergency [id number] 08/25/2013 20:27:00 08/25/2013 20:53:00 DIS Emergency JAMES SHELDON APRN [facility] [id number] 04/26/2016 13:05:00 Document Registration
[2018-03-03] MEDS ORDERED: ACET-2267 PO (01:04)
[2018-03-03] MEDS ORDERED: DEXT15CA28 PO (01:04)
--- NOTE | 2018-03-03 01:42 | ED Lower Extremity ---
General Chief Complaint: Lower Extremity Stated Complaint: RT KNEE INJURY-FALL, LOCKS UP GIVES AWAY Nursing Triage Note: pt c/o positional pain under her right knee cap. she fell on her steps on 02/28 , twisting that right knee. Nursing Sepsis Screen: No Definite Risk Source: patient Exam Limitations: no limitations History of Present Illness Date Seen by Provider: Mar 03, 2018 Time Seen by Provider: 01:00 Initial Comments Here with report of right knee pain. She fell a few days ago at her house tripping over a brick and twisted her right knee. Since she's had some swelling and pain to her right knee and it hurts to stand for long periods or sometimes when walking. She states that her knee sometimes feels like it's going to give out. She did work today and works 10 hours shifts at the [employer]. Feels like pain is behind the knee cap in her knee. Onset: other (3 days ago) Severity: mild, moderate Pain/Injury Location: right knee Method of Injury: fell, twisted Modifying Factors: Improves With Immobilization; Worse With Movement; Improves With Rest Allergies and Home Medications Allergies Coded Allergies: No Known Drug Allergies (Unverified , 03/15/09) Home Medications Acetaminophen 500 Mg Tablet, 1,000 MG PO PRN, (Reported) Famotidine 20 Mg Tablet, 1 EACH PO BID Prescribed by: RANDI MCCLELLAN on 10/06/132206 Prednisone 20 Mg Tab, 2 TAB PO DAILY Prescribed by: RANDI MCCLELLAN on 10/06/132206 Patient Home Medication List Home Medication List Reviewed: Yes Review of Systems Constitutional: see HPI; No chills, No fever Respiratory: no symptoms reported Cardiovascular: no symptoms reported Musculoskeletal: see HPI, joint pain, joint swelling Skin: no symptoms reported Past Dcibybg-[id number]-[id number] Hx Past Med/Social Hx: Reviewed Nursing Past Med/Soc Hx Patient Social History Alcohol Use: Denies Use Recreational Drug Use: No Smoking Status: Never a Smoker Recent Foreign Travel: No Contact w/Someone Who Travel: No Recent Infectious Disease Expo: No Recent Hopitalizations: No Immunizations Up To Date Tetanus Booster (TDap): Less than 5yrs Date of Pneumonia Vaccine: Jan 28, 2011 Date of Influenza Vaccine: Jan 29, 2012 Seasonal Allergies Seasonal Allergies: Yes Past Medical History Surgeries: Yes Section Respiratory: Yes Asthma Cardiac: Yes (hypertension with ) Neurological: No Last Menstrual Period: Feb 17, 2018 Reproductive Disorders: No Genitourinary: No Gastrointestinal: No Musculoskeletal: No Endocrine: No Cancer: No Psychosocial: No Integumentary: No Blood Disorders: No Family Medical History Reviewed Nursing Family Hx Physical Exam Vital Signs Vital Signs - First Documented 03/03/18 00:55 Temp 98.4 Pulse 120 Resp 16 B/P (MAP) 152/116 (128) Pulse Ox 97 Capillary Refill : Less Than 3 Seconds Height, Weight, BMI Height: 5'9.00" Weight: 280lbs. oz. 127.844565cf; BMI Method:Stated General Appearance: WD/WN, no apparent distress Cardiovascular: regular rate, rhythm, no murmur Respiratory: lungs clear, normal breath sounds Knees: left knee non-tender, left knee normal inspection, left knee normal range of motion; right knee pain, right knee soft tissue tenderness, right knee swelling, right knee other (mild anterior fusion and tenderness at the patella bursa. Negative drawer. Negative laxity.) Neurologic/Psychiatric: alert, oriented x 3 Skin: normal color, warm/dry Progress/Results/Core Measures Results/Orders My Orders Orders - ABIGAIL VILLA MD Knee, Right, 3 Views (03/03/18 00:53) Urine Bedside (03/03/18 00:53) Vital Signs/I&O 03/03/18 00:55 Temp 98.4 Pulse 120 Resp 16 B/P (MAP) 152/116 (128) Pulse Ox 97 Blood Pressure Mean: 128 Urine -Bedside: Negative Progress Progress Note : Progress Note Seen and evaluated. X-ray right knee. No acute fracture. Frantz wrap given. Patient instructed on ibuprofen and ice packs. Discharged home with return precautions. Patient verbalize understanding instructions and agreement with plan. Diagnostic Imaging Diagonstic Imaging: Xray Plain Films/CT/US/NM/MRI: knee Comments Right knee 3 view. No acute fracture. Departure Impression Primary Impression: Internal derangement of right knee Additional Impression: Effusion, right knee Disposition: 01 HOME, SELF-CARE Condition: Improved Departure-Patient Inst. Decision time for Depature: 01:42 Referrals: [facility] (PCP/Family) Primary Care Physician Patient Instructions: Internal Derangement of the Knee (DC), Knee Sprain (DC) Add. Discharge Instructions: All discharge instructions reviewed with patient and/or family. Voiced understanding You may take ibuprofen 800 mg every 8 hours as needed for pain. Use ice packs to affected area 20 minutes per hour as needed to reduce swelling. Elevate leg as much as possible. You should try to sit as much as possible while working. Follow-up with your DrMirta in a few days for recheck. Return for worse pain, swelling, weakness, numbness or other concerns as needed. You may also take Tylenol/acetaminophen 1000 mg every 6 hours as needed for pain but do not exceed 4000 mg daily dose in total including other medicines he may be taken. Work/School Note: Work Release Form Date Seen in the Emergency Department: Mar 03, 2018 Return to Work: Mar 03, 2018 Other Restrictions Listed Below: Please allow to sit often or use stool while working for the next 3 days ABIGAIL VILLA MD Mar 03, 2018 01:42
[2018-03-03 01:51] VITALS: BP 141/89
--- NOTE | 2018-03-03 06:02 | Diagnostic Imaging Report ---
INDICATION: Right knee pain 3 views of right knee show no fracture, dislocation or pathologic effusion. IMPRESSION: Negative right knee Dictated by: Dictated on workstation # [id number]
== END 2018-03-03 01:45 | disposition home or self-care (01) ==
LOC: EDUNIT# 00:46 → ER 00:50
DX: M23.8X1 Other internal derangements of right knee (principal); M25.461 Effusion, right knee; J45.909 Unspecified asthma, uncomplicated; W01.0XXA Fall on same level from slipping, tripping and stumbling without subsequent striking against object, initial encounter; Y93.01 Activity, walking, marching and hiking
CPT/HCPCS: 73562; 84703